=== PATIENT | female | born 1985 | race Caucasian/White ===

== ENCOUNTER 2017-03-28 16:00 | Inpatient (IN) | payer OTHER ==
--- NOTE | ~2017-03-28 | DS ---
Unit #: [id number] #: [id number] Patient: GARRETT HONG [id number] [facility] [address] [place] [address] [id number] I MR#: [id number] NAME: GARRETT HONG. ROOM: [facility] Age: 31 Sex: F Admission Date: 03/28/2017 : 1985 Discharge Date: 04/03/2017 Attending Physician: Fredis Chowdary M.D. Primary Care Physician: Primary Care Physician No DISCHARGE SUMMARY REVISED REPORT (See Addendum) REASON FOR ADMISSION The patient is a 31-year-old white female, who was admitted for opioid detox. HOSPITAL COURSE The patient was admitted to the [address] [place] [address] unit and placed on routine detoxification protocol for opioids. She was continued on previously prescribed home medications including Minipress, Seroquel, Flonase, and Celexa. The patient had a fairly arduous detox course and her participation within the therapeutic milieu was less limited. By 04/02, she was in brighter spirits and requested discharge. Because of transportation issues, it could not take place until the following day. FINAL DIAGNOSES Opioid use disorders, dysthymic disorder. DISPOSITION ON DISCHARGE The patient is discharged home on the following medications; Minipress 2 mg at bedtime for nightmares, Seroquel 50 mg at bedtime for mood stabilization, Flonase 2 sprays twice daily for environmental allergies, Celexa 40 mg daily for depression. DISCHARGE INSTRUCTIONS No dietary or physical restrictions were placed on the patient at the time of discharge. FOLLOWUP Followup will take place through the auspices of community mental health resources in the [place], [place] area. PROGNOSIS The patient's prognosis is considered fair. Dictated by... Fredis Chowdary M.D. CB/ligial TD: 04/02/2017 15:02 JOB #: [id number] Unit #: [id number] #: [id number] Patient: GARRETT HONG ADDENDUM The patient's discharge was briefly delayed secondary to transportation issues following the holiday weekend, but on 04/03/2017, the patient was in bright spirits and requesting discharge, and it was so ordered. Dictated by... Estrellita Patrick TD: 04/03/2017 13:27 JOB #: [id number] DISCHARGE SUMMARY Page 1 of 1 X Fredis Chowdary MD X DISCHARGE SUMMARY
--- NOTE | ~2017-03-28 | PN ---
Unit #: [id number] #: [id number] Patient: GARRETT HONG [id number] [facility] [address] [place] [address] [id number] MR#: [id number] NAME: GARRETT HONG ROOM: P212 Age: 31 Sex: F Admission Date: 03/28/2017 : 1985 Attending Physician: Fredis Chowdary M.D. Admitting Physician: Fredis Chowdary M.D. Primary Care Physician: Primary Care Physician Bette DOWNING PROGRESS NOTES DATE 03/31/2017 DISCUSSION The patient is abed today and is resting comfortably. Staff reports no management issues. Her detox continues uneventfully. Dictated by... Fredis Chowdary M.D. CB/arminda TD: 03/31/2017 12:41 JOB #: [id number] [facility] PROGRESS NOTES Page 1 of 1 X Fredis Chowdary MD X PROGRESS NOTE
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
--- NOTE | ~2017-03-28 | DS ---
Unit #: [id number] #: [id number] Patient: GARRETT HONG [id number] [facility] [address] [place] [address] [id number] I MR#: [id number] NAME: GARRETT HONG. [place] [facility] [place] [facility] [place] Age: 31 Sex: F Admission Date: 03/28/2017 : 1985 Discharge Date: Attending Physician: Fredis Chowdary M.D. Primary Care Physician: Primary Care Physician No DISCHARGE SUMMARY REASON FOR ADMISSION The patient is a 31-year-old white female, who was admitted for opioid detox. HOSPITAL COURSE The patient was admitted to the [address] [place] [address] unit and placed on routine detoxification protocol for opioids. She was continued on previously prescribed home medications including Minipress, Seroquel, Flonase, and Celexa. The patient had a fairly arduous detox course and her participation within the therapeutic milieu was less limited. By 04/02, she was in brighter spirits and requested discharge. Because of transportation issues, it could not take place until the following day. FINAL DIAGNOSES Opioid use disorders, dysthymic disorder. DISPOSITION ON DISCHARGE The patient is discharged home on the following medications; Minipress 2 mg at bedtime for nightmares, Seroquel 50 mg at bedtime for mood stabilization, Flonase 2 sprays twice daily for environmental allergies, Celexa 40 mg daily for depression. DISCHARGE INSTRUCTIONS No dietary or physical restrictions were placed on the patient at the time of discharge. FOLLOWUP Followup will take place through the auspices of community mental health resources in the [place], [place] area. PROGNOSIS The patient's prognosis is considered fair. Dictated by... Fredis Chowdary M.D. CB/indra TD: 04/02/2017 15:02 JOB #: [id number] Unit #: [id number] #: [id number] Patient: GARRETT HONG DISCHARGE SUMMARY Page 1 of 1 X Fredis Chowdary MD DISCHARGE SUMMARY
--- NOTE | ~2017-03-28 | PN ---
Unit #: [id number] #: [id number] Patient: GARRETT HONG [id number] [facility] [address] [place] [address] [id number] I MR#: [id number] NAME: GARRETT HONG ROOM: P212 Age: 31 Sex: F Admission Date: 03/28/2017 : 1985 Attending Physician: Fredis Chowdary M.D. Admitting Physician: Fredis Chowdary M.D. Primary Care Physician: Primary Care Physician Bette DOWNING PROGRESS NOTES DATE 04/01/2017 DISCUSSION The patient is abed today offering no new complaints. Staff reports that the patient's participation within the therapeutic milieu has been less than optimal but she has been no management issue. We are looking to early week discharge. Dictated by... Fredis Chowdary M.D. CB/bryce TD: 04/02/2017 02:02 JOB #: [id number] [facility] PROGRESS NOTES Page 1 of 1 X Fredis Chowdary MD PROGRESS NOTE
--- NOTE | ~2017-03-28 | HP ---
Unit #: [id number] #: [id number] Patient: GARRETT HONG [id number] [place] [address] [id number] MR#: [id number] NAME: GARRETT HONG. ROOM: P212 Age: 31 Sex: F Admission Date: 03/28/2017 : 1985 Attending Physician: Fredis Chowdary M.D. Admitting Physician: Fredis Chowdary M.D. Primary Care Physician: No Primary Care Physician HISTORY AND PHYSICAL HISTORY OF PRESENT ILLNESS Garrett is a 31-year-old admitted to [address] [place] [address] because of her continued polysubstance abuse, which includes heroin, OxyContin, and Suboxone. PAST MEDICAL HISTORY Long history of opioid abuse. PAST SURGICAL HISTORY Nothing reported. ALLERGIES No known drug allergies. SOCIAL HISTORY Smokes one pack per day. Drinks alcohol rarely. Admits to long history of illicit substance abuse to include opioids. FAMILY HISTORY Medically noncontributory. REVIEW OF SYSTEMS CONSTITUTIONAL: No fever or chills. HEENT: Denies any sore throat, ear pain or runny nose. CARDIOVASCULAR: Denies chest pain, irregular heart rhythm or palpitations. CHEST: Denies shortness of breath or cough. No hemoptysis. GASTROINTESTINAL: Denies nausea, vomiting, diarrhea or chronic constipation. ENDOCRINE: Denies history of increased thirst or urination. No recent significant weight loss or gain. GENITOURINARY: Denies dysuria, frequency, or hematuria. SKIN: Denies any rashes. HEMATOLOGIC: Denies history of increased bleeding or bruising. MUSCULOSKELETAL: Denies any hot, swollen joints. No generalized muscle pain. NEUROLOGIC: Denies problems with vision or speech. No frequent, severe headaches. No numbness, tingling or weakness in any extremities. Denies loss of bladder or bowel control. CURRENT MEDICATIONS 1. Detox protocol. 2. Neurontin 300 mg q.h.s. 3. SEROquel 50 mg q.h.s. 4. Minipress 2 mg b.i.d. Unit #: [id number] #: [id number] Patient: GARRETT HONG 5. Nicotine patch 21 mg every day 6. Flonase nasal spray every day. 7. Celexa 40 mg every day. PHYSICAL EXAMINATION GENERAL: Alert, well nourished, and in no apparent distress. VITAL SIGNS: Blood pressure 140/88, heart rate 73, respirations 16, temperature 98.6, weight 236 pounds, and height 5 feet, 8 inches. SKIN: Warm and dry without rash or lesion. HEENT: Normocephalic. TMs not viewed. Oral and nasal passages clear. Conjunctivae clear. PERRLA. EOMs intact. NECK: Supple without lymphadenopathy or thyromegaly. HEART: Regular rate and rhythm without murmur. LUNGS: Clear. ABDOMEN: Soft, nontender. : Not done. EXTREMITIES: No evidence of cyanosis, clubbing or edema. Moves all without focal deficit. NEUROLOGICAL: Grossly within normal limits. Cranial Nerves: II: Visual hdz are intact. III, IV AND : Extraocular movements are intact. Pupils are equal, round and reactive to light. V: Facial sensation is grossly normal. VII: Facial movements and expression are normal. VIII: Auditory acuity grossly intact. IX, X: Uvula is midline. Phonation is normal. XI: Patient shrugs shoulders and turns head normally. XII: Tongue protrudes in the midline. Sensory and Motor Function: Sensory and motor sensation is grossly normal. Motor: moves all extremities well. Coordination: Gait is normal. Deep Tendon Reflexes: Intact. IMPRESSION Psychiatric admission. RECOMMENDATIONS PSYCHIATRIC: Per psychiatrist. MEDICAL: I see no contraindication to participating in facility's activities. MEDICAL PROGNOSIS Good. MEDICAL CONDITION Stable. Dictated by... Lilibeth Levy P.A.-C. for Estrellita Bolton/luis m TD: 03/30/2017 09:36 JOB #: [id number] Unit #: [id number] #: [id number] Patient: GARRETT HONG HISTORY AND PHYSICAL Page 1 of 1 X Lilibeth Levy HISTORY AND PHYSICAL
--- NOTE | ~2017-03-28 | PN ---
Unit #: [id number] #: [id number] Patient: GARRETT HONG [id number] [facility] [address] [place] [address] [id number] I MR#: [id number] NAME: GARRETT HONG ROOM: P212 Age: 31 Sex: F Admission Date: 03/28/2017 : 1985 Attending Physician: Fredis Chowdary M.D. Admitting Physician: Fredis Chowdary M.D. Primary Care Physician: Primary Care Physician Bette WARD NOTES DATE 03/30/2017 DISCUSSION The patient is abed today. She is reporting some reduction in suicidal thinking and reports that her detox symptoms have improved somewhat. Dictated by... Fredis Chowdary M.D. CB/arminda TD: 03/30/2017 13:45 JOB #: [id number] [facility] PROGRESS NOTES Page 1 of 1 X Fredis Chowdary MD X PROGRESS NOTE
== END 2017-04-03 15:20 | disposition home or self-care (01) | DRG 897 ==
LOC: P2E 16:00 → P2S 23:28
PROC: HZ2ZZZZ Detoxification Services for Substance Abuse Treatment (ICD-10-PCS; principal; 2017-03-28)
DX: F11.20 Opioid dependence, uncomplicated (principal); F14.20 Cocaine dependence, uncomplicated; F43.10 Post-traumatic stress disorder, unspecified; F10.20 Alcohol dependence, uncomplicated; E66.9 Obesity, unspecified; F17.210 Nicotine dependence, cigarettes, uncomplicated; F34.1 Dysthymic disorder
CPT/HCPCS: 86592